=== PATIENT | female | born 1950 | race African-American/Black ===

== ENCOUNTER 2020-06-11 13:06 | Inpatient (IN) | payer MEDICARE, MEDICAID, OTHER ==
[2020-06-11 13:46] LABS: Hemoglobin 11.8 g/dL (12.0-16.0); Mean Corpuscular HGB CONC 32.2 g/dL (32.0-36.0); Mean Corpuscular Hemoglobin 28.2 pg (27.0-31.0); Mean Corpuscular Volume 87.5 fL (78.0-98.0); Mean Platelet Volume 11.3 fL (7.4-10.4); Platelet Count 147 thou/uL (130-400); RBC Distribution Width 18.1 % (11.5-14.5); Red Blood Cell (RBC) Count 4.17 mill/uL (4.20-5.40); White Blood Cell (WBC) Count 9.7 thou/uL (4.8-10.8)
[2020-06-11 14:01] LABS: Phosphorus 3.3 mg/dL (2.3-4.7)
[2020-06-11 14:04] LABS: Band 4 % (5-11); Eosinophils 6 % (0-10); Large Platelets SLIGHT; Lymphocytes 42 % (21-51); MDiff Complete? YES; Monocytes 5 % (0-10); Neutrophil 29 % (42-75); Platelet Morphology Comment Appears Adequate; Polychromasia SLIGHT = 2-3 cells (100X) (0-2/hpf); Reactive Lymphocytes 14 % (0-10); Target Cells SLIGHT = 2-5 cells (100X) (0-1/hpf)
[2020-06-11 14:05] LABS: ALT (SGPT) 526 U/L (8-55); AST (SGOT) 734 U/L (5-34); Albumin 3.6 g/dL (3.4-4.8); Alkaline Phosphatase 111 U/L (40-110); Anion Gap 22 mmol/L (10-20); BUN (Urea Nitrogen) 34 mg/dL (9.8-20.1); Bilirubin, Total 6.8 mg/dL (0.2-1.2); Calc. Creatinine Clearance 0 mL/min (70-130); Calcium 10.1 mg/dL (7.8-10.44); Carbon Dioxide 11 mmol/L (23-31); Chloride 109 mmol/L (98-107); Estimated GFR-MDRD 14; Globulin 5.9 g/dL (2.4-3.5); Glucose 91 mg/dL (80-115); Magnesium 1.9 mg/dL (1.6-2.6); Potassium 5.7 mmol/L (3.5-5.1); Protein, Total 9.5 g/dL (6.0-8.3); Sodium 136 mmol/L (136-145)
[2020-06-11] MEDS ORDERED: Sodium Bicarb 50 MEQ/50 ML Abboject 8.4% SYRINGE ONE (14:20)
[2020-06-11] MEDS ORDERED: Sodium Bicarbonate 150 MEQ in Dextrose 5% in Water 1,000 ML IV SCH (14:45)
--- NOTE | 2020-06-11 14:59 | PDOC.FPRHP ---
- History of Present Illness Chief Complaint: abnormal labs History of Present Illness: Patient is a 70 yo F, PMHx of Dementia, Depression, HTN, DMII, HLD and hypothyroid, who was dropped off at the emergency department by [facility] secondary to abnormal lab work. The patient states she was told that her kidney and liver function was not good. She states that she has not been eating for the past 2-3 days due to nausea and vomiting and has had some hematuria but denies constipation, or diarrhea, blood in stools, fever, cough, dysuria, urinary retention, urinary frequency, abdominal pain, blood in stools or vomit, swelling. Patient denies taking any extra medications, noting she has not taken any today. States that in addition to depression, she has Bipolar Disorder and Schizophrenia, denies SI/HI. Patient has been going to [facility] for many years. Patient is a questionable historian due to dementia. Called and spoke with sister who said over the past 2-3 weeks patient has not had an appetite and has had low energy "not wanting to do anything". She notes that her PCP recently called the patient and told her that she needed to stop a medication which she thinks was metformin, due to increased liver enzymes. ED Course: 2 L NS, 1 amp D5, 1 amp sodium bicarb, starting bicarb drip. Consult Dr. Danielle. - Allergies/Adverse Reactions Allergies Allergy/AdvReac Type Severity Reaction Status Date / Time No Known Allergies Allergy Unverified 06/11/20 14:36 - History PMHx: Depression, hypothyroid, DMII, HLD, questionable other mental health d/o possible other mental health disorder (taking antipsychotics), Dementia PSHx: hysterectomy FHx: no known family history Social: Patient smokes 1-2 cigarettes a day for 30+ years, no tobacco, no etoh use - Review of Systems General: reports: weight/appetite/sleep changes, fatigue. denies: fever/chills Eyes: denies: eye pain, vision changes ENT: denies: nasal congestion, rhinorrhea Respiratory: denies: cough, congestion, shortness of breath Cardiovascular: denies: chest pain, edema Gastrointestinal: reports: nausea, vomiting. denies: diarrhea, constipation, abdominal pain, GI bleeding Genitourinary: denies: incontinence, dysuria, polyuria Skin: denies: rashes, lesions Musculoskeletal: denies: pain, tenderness Neurological: denies: numbness, syncope, seizure Psychological: reports: depression - Vital signs BP: 98/47, MAP: 64, Pulse: 80, O2 sat: 100 on RA Wt: 79.4 Kg - Physical Exam Constitutional: NAD, well developed -Constitutional: AxO x 2 (person, place, but not date/time) HEENT: normocephalic and atraumatic, PERRLA, other (scleral icterus present) Neck: supple, FROM Heart: RRR, normal S1/S2 Lungs: CTAB, no respiratory distress Abdomen: soft, non-tender, bowel sounds present Musculoskeletal: normal structure, normal tone Neurological: no focal deficit, normal sensation Skin: no rash/lesions, other (jaundice) Heme/Lymphatic: no unusual bruising or bleeding, no purpura -Psychiatric: AxO x 2 (person, place but stated month was december) FMR H&P: Results - Labs Result Diagrams: 06/11/20 13:30 06/11/20 13:30 Lab results: WBC 9.7 thou/uL (4.8-10.8) 06/11/20 13:30 Hgb 11.8 g/dL (12.0-16.0) L 06/11/20 13:30 Hct 36.5 % (36.0-47.0) 06/11/20 13:30 MCV 87.5 fL (78.0-98.0) 06/11/20 13:30 Plt Count 147 thou/uL (130-400) 06/11/20 13:30 Band Neuts % (Manual) 4 % (5-11) L 06/11/20 13:30 Sodium 136 mmol/L (136-145) 06/11/20 13:30 Potassium 5.7 mmol/L (3.5-5.1) H 06/11/20 13:30 Chloride 109 mmol/L (98-107) H 06/11/20 13:30 Carbon Dioxide 11 mmol/L (23-31) L 06/11/20 13:30 BUN 34 mg/dL (9.8-20.1) H 06/11/20 13:30 Creatinine 3.97 mg/dL (0.6-1.1) H 06/11/20 13:30 Glucose 91 mg/dL (80-115) 06/11/20 13:30 Calcium 10.1 mg/dL (7.8-10.44) 06/11/20 13:30 Total Bilirubin 6.8 mg/dL (0.2-1.2) H 06/11/20 13:30 AST 734 U/L (5-34) H 06/11/20 13:30 ALT 526 U/L (8-55) H 06/11/20 13:30 Alkaline Phosphatase 111 U/L (40-110) H 06/11/20 13:30 Serum Total Protein 9.5 g/dL (6.0-8.3) H 06/11/20 13:30 Albumin 3.6 g/dL (3.4-4.8) 06/11/20 13:30 - EKG Interpretation EKG: pending FMR H&P: A/P - Plan Acute Liver Failure/Hepatitis AST 734, ALT 526, Total Bili 6.8, Alk phos 111 Possible 2/2 medication, reportedly recently taken off medication that caused abnormal liver numbers Denies ETOH abuse, IV drug use, not sexually active, no hx transfusions Will contact PCP, request records - Hepatitis panel - Syphilis/RPR - Tylenol level, ASA level - UDS - PTT/PTINR - Lipase - Lactic acid - Abdominal U/S - repeat BMP - If workup negative, consider other etiology: autoimmune, hemochromatosis/ Luis's ELVIA BUN 34, Cr 3.97, GFR 14 - abdominal U/S - q2hr BMP's - Nephro consulted Dr. Danielle - recommended bicarb drip, appreciate recs - monitor I/Os Hyperkalemia K 5.7 - Calcium gluconate given - EKG ordered - q2h BMP's - initiate K reversal agents if needed and consider dialysis if significantly worsens DM II - hold home meds - SSI started Hypothyroid - will restart home meds tomorrow HLD - hold home med HTN - hold home meds Dementia - hold home meds Depression - hold home meds VTE: heparin Fluids: bicarb drip Diet: HH Code: full Dispo: admit to IMCU for close monitoring FMR H&P: Upper Level - Pertinent history Pt is a 70 yo female with PMH significant for hypothyroid, htn, dementia, DM, HLD, depression who presents to the ED directly from [facility] due to elevated liver enzymes. She is a poor historian. She endorsed N/V for the last 2 weeks with decreased appetite. Otherwise she denies any complaints. She states she was supposed to stop taking a medication due to lab abnormalities but does not know the medication. She does have decrease urine output. Denies previous history of kidney disease. We spoke to her daughter endorsed dementia, baseline AAO x [address] States mother has not been acting herself for the last 2 weeks. Mariangel and her daughter live together. - Pertinent findings Vitals: 98/47, r 24, p 80, 97.5 F, 100% RA Pertinent PE: Abdomen: non-tender, no masses noted, negative [place], did not appreciated enlarged liver Skin: jaundice HEENT: scleral icterus Pulm: CTAB Cardiac: RRR, no m/r/g - Plan Date/Time: 06/11/20 1456 I, Oh Blanchard, have evaluated this patient and agree with findings/plan as outlined by process engineering intern resident. Pertinent changes/additions are listed here. Pt is a 70 yo female who presents with acute liver failure, acute kidney failure with unknown etiology: # Acute Liver Failure/Hepatitis Possibly secondary to medication but unsure etiology at this time. She states she was recently taken off a medication for abnormal liver numbers. Denies alcohol. - Hepatitis panel - Tylenol level - ASA level - PTT/PTINR - Lipase - Lactic acid - UDS - RUQ U/S - repeat BMP after 2 L of fluids - consider autoimmune, Luis's if work up is negative # Acute Kidney Failure - abdominal U/S - q2h BMP's - Nephro consulted, appreciate rec's - given bicarb drip # Hyperkalemia - Calcium gluconate given - q2h BMP's - initiate K reversal agents if needed and consider dialysis if significantly worsens # DM II - hold home meds - SSI started # Hypothyroid - restart tomorrow # HLD - hold home med # HTN - hold home meds # Dementia - hold home meds # Depression - hold home meds VTE: heparin Fluids: bicarb drip Diet: :HH Code: full Dispo: admit to IMCU for close monitoring
--- NOTE | 2020-06-11 15:13 | CON ---
DATE OF CONSULTATION: REASON FOR CONSULTATION: Hyperkalemia and acute renal failure. HISTORY OF PRESENT ILLNESS: This is a very pleasant 70-year-old female, who presented to the hospital for abnormal labs. The patient was noted to have hyperkalemia and significant metabolic acidosis. The patient can give no further history. PAST MEDICAL HISTORY: Significant for diabetes mellitus, hyperlipidemia, hypertension, and hysterectomy. SOCIOECONOMIC HISTORY: No alcohol or drug abuse. FAMILY HISTORY: Negative for ESRD. ALLERGIES: REVIEWED. MEDICATIONS: Home medications list reviewed. Hospital medications list reviewed. REVIEW OF SYSTEMS: Fifteen-point review of system was performed and negative except for positives noted above. PHYSICAL EXAMINATION: GENERAL: On exam, the patient is awake and alert. VITAL SIGNS: Afebrile, breathing at 16, and blood pressure 83/46, and pulse was 110. HEENT: Head normocephalic and atraumatic. Eyes intact, no ulcers. Nose intact, no ulcers. Ears intact, no ulcers. NECK: Supple. No JVD. CHEST: Symmetrical and clear. CARDIOVASCULAR: Shows S1 and S2, no rub, no murmur. GASTROINTESTINAL: Abdomen is soft, bowel sounds positive. EXTREMITIES: Show no edema or ulcers. SKIN: Shows no rash or petechiae. MUSCULOSKELETAL: Shows no joint swelling or stiffness. GENITOURINARY: Shows no Valdez or CVA tenderness. NEUROLOGIC: Motor intact. Cranial nerves intact. LABORATORY DATA: Reviewed. ASSESSMENT AND PLAN: 1. Acute kidney injury with chronic kidney disease, most likely due to decreased effective arterial blood volume. liver failure. 2. Hyperkalemia. Start bicarb drip. 3. Anemia, stable. Medications based on GFR are appropriate. Liver failure could be because of hypertension versus sepsis versus other etiologies. I would recommend getting a 2D echo as well as renal imaging. Overall, prognosis is poor. I would recommend following labs every 2 hours. Job ID: [id number]
[2020-06-11 15:40] LABS: Actual Bicarbonate (HCO3a) 13.7 mEq/L (22-28); Analyzer IN Cardio ER; Base Excess (BEa) -10.7 mEq/L (-2.0 to +3.0); CO2 Tension 26.1 mmHg (35.0-45.0); Calcium, Ionized (arterial) 0.98 mmol/L (1.12-1.30); Carboxyhemoglobin (COHb) 0.3 gm% (0.0-3.0); Hemoglobin (Hb) 10.6 g/dL (12.0-16.0); Potassium - ABG Lab 4.22 mmol/L (3.70-5.30); pH, Arterial 7.34 (7.35-7.45)
[2020-06-11 15:42] LABS: ALV-art Gradient 19.105 (0-20); Puncture Site RBRACH
[2020-06-11] MEDS ORDERED: Ondansetron ODT 4 MG TAB PO PRN (15:48)
[2020-06-11] MEDS ORDERED: Dextrose 50% Abboject 50 ML SYRINGE SLOW IVP PRN (15:48)
[2020-06-11] MEDS ORDERED: Dextrose 5% in Water 1,000 ML IV PRN (15:48)
[2020-06-11] MEDS ORDERED: HumaLOG 300 UNITS/3 ML VIAL SC PRN ×2 (15:54)
[2020-06-11] MEDS ORDERED: Calcium Gluconate 4.6 MEQ in Sodium Chloride 0.9% 100 ML IVPB SCH (16:15)
[2020-06-11 16:24] LABS: Acetaminophen Less than 6.0 mcg/mL (10.0-30.0); Alcohol Less than 10 mg/dL (Less than 10); Salicylate Less than 8.0 mg/dL (15.0-30.0)
--- NOTE | 2020-06-11 17:14 | ULT ---
ULTRASOUND RETROPERITONEUM COMPLETE: (RENAL) DATE: 06/11/2020 HISTORY: 70-year-old female with new onset renal failure FINDINGS: Bilateral renal parenchymal echogenicity is diffusely heterogeneously slightly increased, suggestive of medical renal disease. The left kidney is poorly visualized, partially obscured by shadowing from bowel gas. No hydronephrosis bilaterally. Right kidney: 10 x 4 x 5.5 cm. Left kidney: 7.5 x 4.5 x 4 cm. There are no images of the urinary bladder. IMPRESSION: 1) no hydronephrosis. 2.) Findings suggestive of medical renal disease. 3) left kidney poorly visualized
[2020-06-11 19:41] VITALS: BMI 37.5
[2020-06-11 20:10] LABS: Syphilis Antibody Nonreactive (Nonreactive); Syphilis Antibody Index 0.08 S/CO (<1.00 Non-Reactive)
[2020-06-11] MEDS ORDERED: Vancomycin HCl 1.25 GM in Sodium Chloride 0.9% 250 ML 300 ML IVPB SCH (21:15)
[2020-06-11] MEDS: Heparin 5,000 UNITS/ML VIAL SC SCH (21:16)
[2020-06-11 21:35] LABS: Anion Gap 16 mmol/L (10-20); BUN (Urea Nitrogen) 31 mg/dL (9.8-20.1); Calc. Creatinine Clearance 21 mL/min (70-130); Calcium 8.4 mg/dL (7.8-10.44); Carbon Dioxide 19 mmol/L (23-31); Chloride 106 mmol/L (98-107); Estimated GFR-MDRD 16; Glucose 157 mg/dL (80-115); Potassium 3.9 mmol/L (3.5-5.1); Sodium 137 mmol/L (136-145)
[2020-06-11 21:39] LABS: Lactic Acid 3.3 mmol/L (0.5-2.2)
[2020-06-11 21:48] LABS: Anion Gap 15 mmol/L (10-20); BUN (Urea Nitrogen) 30 mg/dL (9.8-20.1); Calc. Creatinine Clearance 21 mL/min (70-130); Calcium 8.8 mg/dL (7.8-10.44); Carbon Dioxide 19 mmol/L (23-31); Chloride 107 mmol/L (98-107); Estimated GFR-MDRD 16; Glucose 160 mg/dL (80-115); Potassium 3.9 mmol/L (3.5-5.1); Sodium 137 mmol/L (136-145)
[2020-06-11] MEDS: Sodium Chloride 0.9% 1,000 ML IV SCH (22:13)
[2020-06-11 22:47] LABS: HIV (1/2) Antibody/Antigen Non-Reactive (NonReactive); HIV 1/2 INDEX 0.11 S/CO (<1.00); Hep C IgG Ab Non-Reactive (NonReactive); Hep C Index 0.28 S/CO (0-0.79)
[2020-06-12 00:20] LABS: HBSAB Concentration 35.02 mIU/mL; Hep B Core Total Ab Reactive (NonReactive); Hep B Surf AB Reactive (NonReactive)
[2020-06-12 00:27] LABS: Hep B Core Total Index 13.81 S/CO (0-0.79)
[2020-06-12 00:29] LABS: HBSAg Index 1341.45 S/CO (0-0.99)
[2020-06-12 00:45] LABS: Hep B Surf Ag Reflx Confirmation S/CO (NonReactive)
[2020-06-12 01:26] LABS: INR-International Normal Ratio 1.4; Prothrombin Time 17.4 sec (12.0-14.7)
[2020-06-12 01:28] LABS: PTT 45.4 sec (22.9-36.1)
[2020-06-12 01:32] LABS: Creatinine, Urine 50.06 mg/dL (47-110)
[2020-06-12 01:45] LABS: Amphetamine Not Detected (NotDetected); Barbiturates Screen Not Detected (NotDetected); Benzodiazepine Screen Not Detected (NotDetected); Cocaine Metabolite Screen Not Detected (NotDetected); Medtox Control Line Valid? VALID (VALID); Medtox Reader # READER 4; Methadone Not Detected (NotDetected); Methamphetamine Not Detected (NotDetected); Opiate Screen Not Detected (NotDetected); Oxycodone Screen Not Detected (NotDetected); Phencyclidine (PCP) Not Detected (NotDetected); THC/Cannabinoid Screen Not Detected (NotDetected); Tricyclic Screen Not Detected (NotDetected)
[2020-06-12 02:16] LABS: ALT (SGPT) 415 U/L (8-55); AST (SGOT) 550 U/L (5-34); Albumin 3.1 g/dL (3.4-4.8); Alkaline Phosphatase 96 U/L (40-110); Anion Gap 16 mmol/L (10-20); BUN (Urea Nitrogen) 28 mg/dL (9.8-20.1); Bilirubin, Total 5.7 mg/dL (0.2-1.2); Calc. Creatinine Clearance 22 mL/min (70-130); Calcium 9.1 mg/dL (7.8-10.44); Carbon Dioxide 18 mmol/L (23-31); Chloride 108 mmol/L (98-107); Estimated GFR-MDRD 17; Globulin 4.7 g/dL (2.4-3.5); Glucose 112 mg/dL (80-115); Potassium 3.3 mmol/L (3.5-5.1); Protein, Total 7.8 g/dL (6.0-8.3); Sodium 139 mmol/L (136-145)
[2020-06-12] MEDS ORDERED: Potassium Chloride 20 MEQ TAB PO SCH (03:00)
[2020-06-12 04:29] LABS: Lactic Acid 2.5 mmol/L (0.5-2.2)
[2020-06-12 05:12] LABS: #Basophils 0.1 thou/uL (0.0-0.2); #Eosinphils 0.3 thou/uL (0.0-0.7); #Lymphocytes 2.9 thou/uL (1.20-3.40); #Monocytes 0.9 thou/uL (0.11-0.59); #Neutrophils 2.3 thou/uL (1.40-6.50); %Basophils 0.8 % (0.0-1.0); %Eosinophils 4.9 % (0.0-10.0); %Lymphocytes 44.8 % (21.0-51.0); %Monocytes 13.7 % (0.0-10.0); %Neutrophils 35.8 % (42.0-75.0); Anisocytosis SLIGHT = 6-15 cells (100X) (0-5/hpf); Hemoglobin 10.2 g/dL (12.0-16.0); MDiff Complete? YES; Mean Corpuscular HGB CONC 32.7 g/dL (32.0-36.0); Mean Corpuscular Hemoglobin 28.8 pg (27.0-31.0); Mean Corpuscular Volume 88.1 fL (78.0-98.0); Mean Platelet Volume 11.1 fL (7.4-10.4); Platelet Count 91 thou/uL (130-400); Platelet Morphology Comment Appears Decreased; RBC Distribution Width 17.9 % (11.5-14.5); Red Blood Cell (RBC) Count 3.53 mill/uL (4.20-5.40); White Blood Cell (WBC) Count 6.5 thou/uL (4.8-10.8)
--- NOTE | 2020-06-12 07:16 | PDOC.FM ---
- Subjective Subjective: Pt is doing well today. She again denies any significant pain, discomfort, N/V, diarrhea. She has an appetite today and ate most of her breakfast. We discussed hepatitis B and she believes she has heard the diagnosis 10-15 years ago but is unsure of any the details. She does not believe she has had any treatment or workup since the initial diagnosis. Still pending records from [facility]. - Objective Vital Signs & Weight: Vital Signs (12 hours) Temp Pulse Ox 06/12/20 04:00 97.6 F 06/11/20 23:40 97.6 F 06/11/20 20:00 98.0 F 97 Weight Weight 87.09 kg Most Recent Monitor Data Heart Rate from ECG 71 NIBP 110/56 NIBP BP-Mean 74 Respiration from ECG 22 SpO2 96 I&O: 06/11/20 06/12/20 06/13/20 06:59 06:59 06:59 Intake Total 1620 Output Total 800 Balance 820 Result Diagrams: 06/12/20 03:24 06/12/20 01:08 Phys Exam - Physical Examination Constitutional: NAD HEENT: PERRLA, moist MMs scleral icterus Neck: no JVD, full ROM Respiratory: no wheezing, clear to auscultation bilateral Cardiovascular: RRR, no significant murmur Gastrointestinal: soft, non-tender, no distention, positive bowel sounds Musculoskeletal: no edema, pulses present Neurological: non-focal, normal sensation Deviation from normal: AAO x 2 to person, place; can hold a conversation, short term memory intact Skin: no rash, cap refill <2 seconds Dx/Plan (1) Hepatitis Status: Acute (2) Acute renal failure Status: Acute (3) Chronic kidney disease Code(s): N18.9 - CHRONIC KIDNEY DISEASE, UNSPECIFIED Status: Acute (4) Diabetes Code(s): E11.9 - TYPE 2 DIABETES MELLITUS WITHOUT COMPLICATIONS Status: Acute (5) HTN (hypertension) Code(s): I10 - ESSENTIAL (PRIMARY) HYPERTENSION Status: Acute (6) Hypothyroid Code(s): E03.9 - HYPOTHYROIDISM, UNSPECIFIED Status: Acute - Plan Plan: # Acute Liver Failure/Hepatitis Unsure if Hep B panel is indicating acute disease vs chronic disease vs prior infection. Recalls being told she had hep B many years ago. Possibly secondary to medication but unsure etiology at this time. She states she was recently taken off a medication for abnormal liver numbers. Denies alcohol. - PTT/PTINR daily - consult GI, appreciate recs - release of records pending # Acute Kidney Failure on likely CKD - Nephro consulted, appreciate rec's - given bicarb drip # Hyperkalemia - improved # Elevated Procal - 24 hr procal and consider d/c of abx - CXR # DM II - hold home meds - SSI started # Hypothyroid - restart tomorrow # HLD - hold home med # HTN - hold home meds # Dementia - hold home meds # Depression - hold home meds # Thrombocytopenia - monitor in setting of heparin VTE prophylaxis VTE: heparin Fluids: NS Diet: HH Code: full Dispo: admit to IMCU for close monitoring Addendum - Attending - Attending Attestation Date/Time: 06/12/20 7015 I personally evaluated the patient and discussed the management with Dr. Blanchard. I agree with the History, Examination, Assessment and Plan documented above with any addition or exceptions noted below. The patient has hepatitis B, possibly for a long time but she doesn't know if she has seen anybody for it. Will consult GI. Nephrology is consulted for the renal failure. Will monitor labs. Appreciate specialist recs.
[2020-06-12 08:04] LABS: INR-International Normal Ratio 1.5; PTT 44.9 sec (22.9-36.1); Prothrombin Time 17.7 sec (12.0-14.7)
[2020-06-12] MEDS: Famotidine 20 MG TAB PO SCH (08:52)
[2020-06-12] MEDS: Heparin 5,000 UNITS/ML VIAL SC SCH ×3 (09:39→21:21)
--- NOTE | 2020-06-12 11:06 | RAD ---
RADIOGRAPH CHEST 1 VIEW: DATE: 06/12/2020 HISTORY: 70-year-old female with at least 2 organ failure. "Infection." FINDINGS: There are no airspace densities, pulmonary edema, pneumothorax, or cardiomegaly. The lateral costophr enic angles are sharp. IMPRESSION: No acute cardiopulmonary findings.
--- NOTE | 2020-06-12 12:27 | PRG ---
DATE OF SERVICE: 06/12/2020 SUBJECTIVE: A 70-year-old female, being seen for acute kidney injury. Patient denied nausea, vomiting or chest pain. OBJECTIVE: GENERAL: The patient is awake, alert. VITAL SIGNS: Afebrile, pulse 85, breathing 16, blood pressure 109/67. HEENT: Head normocephalic and atraumatic. Eyes intact, no ulcers. Nose intact, no ulcers. Ears intact, no ulcers. NECK: Supple. No JVD. CHEST: Symmetrical and clear. CARDIOVASCULAR: Shows S1 and S2, no rub, no murmur. GASTROINTESTINAL: Abdomen is soft, bowel sounds positive. EXTREMITIES: Show no edema or ulcers. SKIN: Shows no rash or petechiae. MUSCULOSKELETAL: Shows no joint swelling or stiffness. GENITOURINARY: Shows no Valdez or CVA tenderness. NEUROLOGIC: Motor intact. Cranial nerves intact. LABORATORY DATA: Reviewed. ASSESSMENT: 1. Acute kidney injury with chronic kidney disease, improved. 2. Hypertension, stable. 3. Anemia, stable. 4. Hypokalemia. Recommend potassium replacement. 5. Metabolic acidosis, improved. Continue sodium bicarbonate by mouth. 6. Hypotension. Avoid antihypertensive. 7. For acidosis, would recommend GI consultation. Job ID: [id number]
[2020-06-12 13:03] LABS: Bacteria/HPF None Seen HPF (None Seen); Bilirubin Negative (Negative); Blood, Urine 2+ (Negative); Clarity Clear (Clear); Glucose, Urine (Dipstick) Normal (Negative); Ketone, Urine Negative (Negative); Leukocyte 500 Leu/uL (Negative); Nitrite Negative (Negative); Protein, Urine (Dipstick) 50 mg/dL (Neg-Trace); RBC/HPF 0-3 HPF (0-3)
[2020-06-12 13:52] LABS: SARS-CoV-2 MS2 Positive; SARS-CoV-2 N Gene Negative; SARS-CoV-2 S Gene Negative; SARS-CoV-2 by NAA Not Detected (NotDetected); SARS-CoV-2 orf1ab Negative
[2020-06-12] MEDS: Sodium Chloride 0.9% 1,000 ML IV SCH ×2 (13:57→23:04)
--- NOTE | 2020-06-12 14:06 | PQF ---
CLINICAL DOCUMENTATION CLARIFICATION FORM: Dear Dr. SHAJI GARRETT Date: 06-12-20 Please exercise your independent, professional judgment in responding to the clarification form. Clinical indicators are provided on the bottom of this form for your review. Please check appropriate box(es): [ x ] UTI [ ] Contaminated urine specimen without UTI [ ] Other diagnosis [ ] Unable to determine In addition, please specify: Present on Admission (POA): [ x ] Yes [ ] No [ ] Unable to determine For continuity of documentation, please document condition throughout progress notes and discharge summary. Thank You. To be completed by CDI/Coding staff for physician review: CLINICAL INDICATORS - SIGNS / SYMPTOMS / LABS / RESULTS AND LOCATION IN MR: URINE: 06-12-20: URINE PROTEIN: 50 A UR LEUKOCYTE ESTERASE: 500 A URINE WBC: 11-20 RISK FACTORS / RESULTS AND LOCATION IN MR: H&P: 06-11-20: TOLD KIDNEY AND LIVER FUNCTION WAS NOT GOOD, STATES THAT SHE HAS NOT BEEN EATING FOR THE PAST 2-3 DAYS DUE TO NAUSEA AND VOMITING, SHE DOES HAVE DECREASE URINE OUTPUT TREATMENT / RESULTS AND LOCATION IN MR: ER NOTES 06-11-20: DEXTROSE 5% IN WATER IVF, NS IVF X 2 L CDS Signature: Aaliyah Laughlin Phone #: [phone] Date:06-12-20 This is a permanent part of the Medical Record [facility]
--- NOTE | 2020-06-12 14:08 | HP ---
HISTORY OF PRESENT ILLNESS: I have examined the patient and discussed the case with Dr. Oh Blanchard. Ms. Sood is a pleasant 70-year-old black female patient, who presented to the emergency room hypotensive with a metabolic acidosis. She is a very poor historian. She does not know what medicines she has taken that had been altered or changed in the last week or two. She had been seeing a physician at [facility]. We have placed a call to this physician for further history, but there has been no return call as of yet. In the event, she is awake, alert. She appears to be in no acute distress. Her only complaint is that she is hungry and wants supper. PHYSICAL EXAMINATION: GENERAL: Again, she is awake, alert. VITAL SIGNS: Her initial blood pressure is 90/60, it is now 98/50 with a MAP of 64. Pulse is 80, regular. O2 saturation on room air is 100%. EAR, NOSE, AND THROAT: No erythema or exudate. NECK: Supple. CARDIAC: Heart rhythm regular, S4 gallop. No murmur or rub noted. LUNGS: Clear without rales or wheezes. ABDOMEN: Flat, soft. No guarding, rebound, or rigidity. NEUROLOGIC: No focal deficits. EXTREMITIES: No edema. LABORATORY DATA: White count is 9700, hemoglobin 11.8, hematocrit 36.5 with an MCV of 87.5. Chemistries; sodium 136, potassium 5.7, chloride 109, bicarb 11, anion gap 22, BUN 34, creatinine 3.97, glucose is 91. Her bilirubin is elevated at 6.8. Her AST is 734, ALT is 526. ABGs, on room air, pH is 7.34, pCO2 is 26.1, and PO2 is 98.0. These are consistent with metabolic acidosis with respiratory compensation. ASSESSMENT: Metabolic acidosis, likely related to renal failure, which is likely related to her low blood pressure. She had been taking an ARB as part of her medical regimen. It is possible that this caused acute kidney injury, which she was unaware and therefore kept taking her medication. This accumulated in probably toxic levels causing her hypotension and subsequent poor perfusion and subsequent metabolic acidosis. The patient has also been seen by Dr. Danielle and a bicarb infusion has been instituted. We will hold her BP medications and continue to follow her labs. WORKING DIAGNOSIS: ARB toxicity with subsequent renal failure, shock liver, hypotension, etc. Job ID: [id number]
[2020-06-12] MEDS ORDERED: Vancomycin HCl 500 MG in Sodium Chloride 0.9% 100 ML IVPB SCH (21:00)
[2020-06-12] MEDS: cefTRIAXone\\ROCEPHIN 1 GM in Sodium Chloride 0.9% 100 ML IVPB SCH (21:18)
[2020-06-12] MEDS ORDERED: OLANZapine 5 MG TAB PO SCH (21:30)
[2020-06-12] MEDS ORDERED: Cefepime 1 GM in Sodium Chloride 0.9% 100 ML IVPB SCH (22:00)
[2020-06-12] MEDS: Nicotine 14 MG PATCH TD SCH (23:00)
--- NOTE | 2020-06-13 02:10 | CON ---
DATE OF CONSULTATION: 06/12/2020 CHIEF COMPLAINT: Abnormal liver tests. HISTORY OF PRESENT ILLNESS: Ms. Sood is a 70-year-old woman who was taken to the emergency room by [facility] due to abnormal blood work. In the emergency room, she was found to have acute renal failure on top of chronic renal insufficiency and elevated liver tests. The patient reports no symptoms currently. She has no nausea, vomiting, diarrhea, constipation, or blood in the stool. No abdominal pain. No prior jaundice or history of liver disease. She has been followed previously at [facility]. She states that she had a colonoscopy at [facility] several years ago. GI was consulted for further assistance regarding her liver. PAST MEDICAL HISTORY: Chronic renal insufficiency, diabetes mellitus, hyperlipidemia, hypertension. PAST SURGICAL HISTORY: Hysterectomy with oophorectomy. FAMILY HISTORY: Negative for liver disease or cancer. SOCIAL HISTORY: She smokes 2 or 3 cigarettes per day. No alcohol. No drugs. ALLERGIES: NO KNOWN DRUG ALLERGIES. MEDICATIONS: Prior to admission, losartan with hydrochlorothiazide, levothyroxine, rosuvastatin, memantine, olanzapine, metformin. Current inpatient medications include ceftriaxone, famotidine, heparin subcu, levothyroxine, memantine, and olanzapine. REVIEW OF SYSTEMS: Negative x10 systems reviewed except as stated in the history of present illness. PHYSICAL EXAMINATION: VITAL SIGNS: Temperature 97.5, pulse 77, blood pressure 105/69. GENERAL: She is in no acute distress. Alert and oriented x3. HEENT: Eyes have no scleral icterus. Oropharynx is clear without lesions. No cervical or supraclavicular lymphadenopathy. LUNGS: Clear to auscultation bilaterally. HEART: Regular rate and rhythm without murmur. ABDOMEN: Soft, nontender, and nondistended. Bowel sounds are present. EXTREMITIES: No lower extremity edema. LABORATORY DATA: White blood cell count 6.5, hemoglobin 10.2, platelets 91. INR 1.5. Creatinine 3.29, bilirubin 5.7, AST 550, ALT 415, alkaline phosphatase 96, albumin 3.1. Labs yesterday; bilirubin was 6.8, AST 734, ALT 526, alkaline phosphatase 111, albumin 3.6. Serology; hepatitis B surface antigen was positive. Hepatitis B surface antibody was positive. Hepatitis B core total was positive. Hepatitis C antibody was negative. IMAGING DATA: She had an ultrasound of the abdomen which showed a nodular margin to the liver. IMPRESSION: 1. Cirrhosis of the liver. Etiology of this is not yet defined. We will check additional blood work to further evaluate. 2. Abnormal liver tests. The elevated transaminases indicate a more acute process. With AST greater than ALT, this can often be seen with ischemic hepatopathy. Her hepatitis B surface antigen and surface antibody are both positive, which would be an unusual combination. We will need to check a DNA level to evaluate for ongoing viral replication. The other reason for this pattern could be if she actually had a more recent acute hepatitis B infection that is resolving with her own immune response. Given the chronic cirrhotic findings, it seems less likely that she really presented just now with an acute hepatitis B. 3. Acute on chronic renal insufficiency. Again hemodynamically mediated cause of this is considered on her antihypertensives. Medication side effect is possible. RECOMMENDATIONS: 1. Additional labs to evaluate cause of her liver disease, including repeat viral hepatitis acute panel as well as hepatitis B surface antibody and hepatitis A total antibody. Also check autoimmune markers and iron saturation and alpha 1 antitrypsin level. 2. Check alpha fetoprotein for hepatoma screening. Ultrasound showed no liver mass. 3. Her statin has been held. 4. She will eventually require upper endoscopy for varices screening. This can be done as an outpatient. 5. Follow trend of her liver tests and check her INR and follow her mental status. She shows no signs of hepatic encephalopathy. She has no asterixis on exam. She does not have slowing of her mentation. Job ID: [id number]
[2020-06-13 04:21] LABS: #Eosinphils 0.3 thou/uL (0.0-0.7); #Lymphocytes 2.3 thou/uL (1.20-3.40); #Monocytes 0.6 thou/uL (0.11-0.59); #Neutrophils 2.2 thou/uL (1.40-6.50); %Basophils 0.4 % (0.0-1.0); %Eosinophils 5.6 % (0.0-10.0); %Lymphocytes 41.8 % (21.0-51.0); %Monocytes 11.1 % (0.0-10.0); %Neutrophils 41.1 % (42.0-75.0); Hemoglobin 10.1 g/dL (12.0-16.0); Mean Corpuscular Hemoglobin 28.8 pg (27.0-31.0); Mean Corpuscular Volume 87.2 fL (78.0-98.0); Mean Platelet Volume 11.1 fL (7.4-10.4); Platelet Count 92 thou/uL (130-400); RBC Distribution Width 18.2 % (11.5-14.5); Red Blood Cell (RBC) Count 3.52 mill/uL (4.20-5.40); White Blood Cell (WBC) Count 5.4 thou/uL (4.8-10.8)
[2020-06-13 04:22] LABS: INR-International Normal Ratio 1.4; PTT 32.8 sec (22.9-36.1)
[2020-06-13 04:53] LABS: Albumin 3.1 g/dL (3.4-4.8)
[2020-06-13 04:54] LABS: Chloride 108 mmol/L (98-107); Potassium 3.5 mmol/L (3.5-5.1); Sodium 137 mmol/L (136-145)
[2020-06-13 04:56] LABS: Globulin 4.8 g/dL (2.4-3.5); Glucose 123 mg/dL (80-115); Protein, Total 7.9 g/dL (6.0-8.3)
[2020-06-13 04:57] LABS: Anion Gap 19 mmol/L (10-20); Bilirubin, Total 5.8 mg/dL (0.2-1.2); Carbon Dioxide 14 mmol/L (23-31)
[2020-06-13 04:59] LABS: Alkaline Phosphatase 103 U/L (40-110); Calc. Creatinine Clearance 27 mL/min (70-130); Estimated GFR-MDRD 21
[2020-06-13 05:00] LABS: BUN (Urea Nitrogen) 18 mg/dL (9.8-20.1)
[2020-06-13 05:01] LABS: ALT (SGPT) 366 U/L (8-55); AST (SGOT) 459 U/L (5-34); Iron Binding Capacity, Total 318 mcg/dL (265-497)
[2020-06-13 05:02] LABS: Iron 217 ug/dL (50-170)
[2020-06-13 05:17] LABS: Hep C IgG Ab Non-Reactive (NonReactive)
[2020-06-13 05:18] LABS: Hep A IgM AB Non-Reactive (NonReactive); Hep C Index 0.21 S/CO (0-0.79)
[2020-06-13 05:19] LABS: Hep A IgM S/CO 0.38 S/CO (0-0.79)
--- NOTE | 2020-06-13 05:20 | PDOC.FM ---
- Subjective Subjective: Pt is feeling well this AM. Denies problems or complaints. Overnight became combative because RN took her cigarettes. Was given nicotine patch. Placed on soft restraints. - Objective MAR Reviewed: Yes Vital Signs & Weight: Vital Signs (12 hours) Temp Pulse Ox 06/13/20 04:17 96.2 F L 06/13/20 00:29 98.6 F 06/12/20 20:00 96 06/12/20 19:13 97.5 F L Weight Admit Weight 87.09 kg Weight 87.09 kg Most Recent Monitor Data Heart Rate from ECG 74 NIBP 127/82 NIBP BP-Mean 97 Respiration from ECG 16 SpO2 96 I&O: 06/11/20 06/12/20 06/13/20 06:59 06:59 06:59 Intake Total 1620 Output Total 800 300 Balance 820 -300 Result Diagrams: 06/13/20 03:43 06/13/20 03:43 Phys Exam - Physical Examination Constitutional: NAD Respiratory: no wheezing, clear to auscultation bilateral Cardiovascular: RRR, no significant murmur Gastrointestinal: soft, non-tender, no distention, positive bowel sounds Musculoskeletal: no edema Neurological: non-focal Psychiatric: normal affect Dx/Plan (1) Acute renal failure Status: Acute (2) Chronic kidney disease Code(s): N18.9 - CHRONIC KIDNEY DISEASE, UNSPECIFIED Status: Acute (3) Diabetes Code(s): E11.9 - TYPE 2 DIABETES MELLITUS WITHOUT COMPLICATIONS Status: Acute (4) HTN (hypertension) Code(s): I10 - ESSENTIAL (PRIMARY) HYPERTENSION Status: Acute (5) Hepatitis Status: Acute (6) Hypothyroid Code(s): E03.9 - HYPOTHYROIDISM, UNSPECIFIED Status: Acute - Plan Plan: # Acute Liver Failure/Hepatitis She states she was recently taken off a medication for abnormal liver numbers. Denies alcohol. - PTT/PT/INR daily - consult GI, appreciate recs. Labs pending. 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 # Acute Kidney Failure on likely CKD - Nephro consulted, appreciate rec's - continue bicarb by mouth # Hyperkalemia - improved, monitor # Elevated Procal - procal 1.01-> 0.57, s/p 1 g ceftriaxone. Consider 3 day course of abx given indeterminate procal to cover for SBP/UTI. - CXR neg # Thrombocytopenia - monitor in setting of heparin VTE prophylaxis # DM II - A1c 5.4, hold/discontinue metformin. - SSI started # Hypothyroid # Dementia # Depression - continue home meds - continue 1-on-1 sitter and soft restraints prn # HLD # HTN - hold statin - hold home BP med, BPs here have been WNL or borderline low VTE: heparin Fluids: NS Diet: HH Code: full Dispo: currently in IM, will place transfer order today for medical floor. Addendum - Attending - Attending Attestation Date/Time: 06/13/20 5524 I personally evaluated the patient and discussed the management with Dr. Foley. I agree with the History, Examination, Assessment and Plan documented above with any addition or exceptions noted below. The patient was agitated overnight. Sitter is at the bedside. Pt is pleasant this morning. Stable to transfer to medical. Liver enzymes downtrending. Appreciate GI recs regarding liver disease and hepatitis B. Labs are currently pending. ELVIA is improving. Appreciate nephro recs. Continue to trend labs.
[2020-06-13] MEDS: Levothyroxine Sodium 50 MCG TAB PO SCH (05:39)
[2020-06-13 06:00] LABS: HBCM Index 1.73 S/CO (0-0.79); Hepatitis B Core IgM Abs Reactive (NonReactive)
[2020-06-13 07:44] LABS: Hep B Surf Ag Reflx Confirmation S/CO (NonReactive)
[2020-06-13 08:27] LABS: Ferritin 589.29 ng/mL (10-291)
[2020-06-13] MEDS: Heparin 5,000 UNITS/ML VIAL SC SCH ×3 (09:50→21:02)
[2020-06-13] MEDS: Famotidine 20 MG TAB PO SCH (09:50)
[2020-06-13 11:27] LABS: HBSAg Index 1361.85 S/CO (0-0.99)
--- NOTE | 2020-06-13 13:28 | PRG ---
DATE OF SERVICE: 06/13/2020 SUBJECTIVE: A 70-year-old female being seen for acute kidney injury. The patient denies nausea, vomiting, or chest pain. OBJECTIVE: GENERAL: On exam, the patient is awake and alert. VITAL SIGNS: Afebrile, pulse 75, breathing at 16, and blood pressure 131/72. HEENT: Head normocephalic and atraumatic. Eyes intact, no ulcers. Nose intact, no ulcers. Ears intact, no ulcers. NECK: Supple. No JVD. CHEST: Symmetrical and clear. CARDIOVASCULAR: Shows S1 and S2, no rub, no murmur. GASTROINTESTINAL: Abdomen is soft, bowel sounds positive. EXTREMITIES: Show no edema or ulcers. SKIN: Shows no rash or petechiae. MUSCULOSKELETAL: Shows no joint swelling or stiffness. GENITOURINARY: Shows no Valdez or CVA tenderness. NEUROLOGIC: Motor intact. Cranial nerves intact. LABORATORY DATA: Hemoglobin 10.1. Potassium is 3.4. ASSESSMENT AND PLAN: 1. Acute kidney injury, improved. 2. Stage 4 chronic kidney disease, stable. 3. Hyperkalemia, stable. 4. Metabolic acidosis. Start sodium bicarbonate 650 t.i.d. No indication for dialysis today. 5. Liver failure management per Primary Team. Job ID: [id number]
--- NOTE | 2020-06-13 13:40 | PRG ---
DATE OF SERVICE: 06/13/2020 SUBJECTIVE: Ms. Sood has no complaints. No abdominal pain, nausea, vomiting, diarrhea, or constipation. OBJECTIVE: VITAL SIGNS: Temperature 97.4, blood pressure 131/72, pulse 78. GENERAL: She is in no acute distress. Alert and oriented x3. LUNGS: Clear to auscultation bilaterally. HEART: Regular rate and rhythm without murmur. ABDOMEN: Soft, nontender, and nondistended. Bowel sounds are present. EXTREMITIES: No lower extremity edema. LABORATORY DATA: White blood cell count 5.4, hemoglobin 10.1, platelets 92. INR 1.4. Creatinine 2.69. Iron 217, TIBC 318, ferritin 589. Bilirubin 5.8, AST 459, ALT 366, alkaline phosphatase 103, albumin 3.1. IMPRESSION: Abnormal liver test. Her hepatitis B serology with the positive core IgM and positive surface antigen along with positive surface antibody indicates that she likely had a hepatitis B acute infection that her body is now clearing with acute inflammatory response. The pattern of these labs is not typical. We will await a DNA level and hepatitis B e-antibody and hepatitis B e-antigen. Her iron saturation is elevated, and we will send hemochromatosis gene as well. RECOMMENDATIONS: 1. Await hepatitis B DNA and hepatitis B e-antibody and hepatitis B e-antigen. 2. Check hematochromatosis gene PCR. 3. Await additional labs for other causes of liver disease. 4. Continue to monitor the trend of her renal function as well. Job ID: [id number]
[2020-06-13] MEDS: Sodium Chloride 0.9% 1,000 ML IV SCH ×2 (14:33→17:25)
[2020-06-13] MEDS: cefTRIAXone\\ROCEPHIN 1 GM in Sodium Chloride 0.9% 100 ML IVPB SCH (20:59)
[2020-06-13] MEDS: OLANZapine 5 MG TAB PO SCH (21:03)
[2020-06-13] MEDS: Nicotine 14 MG PATCH TD SCH (23:44)
[2020-06-14] MEDS: Levothyroxine Sodium 50 MCG TAB PO SCH (05:30)
[2020-06-14] MEDS: Sodium Chloride 0.9% 1,000 ML IV SCH ×2 (05:31→14:59)
[2020-06-14 06:21] LABS: ALT (SGPT) 272 U/L (8-55); AST (SGOT) 309 U/L (5-34); Albumin 2.8 g/dL (3.4-4.8); Alkaline Phosphatase 83 U/L (40-110); Anion Gap 12 mmol/L (10-20); BUN (Urea Nitrogen) 12 mg/dL (9.8-20.1); Calc. Creatinine Clearance 33 mL/min (70-130); Calcium 8.5 mg/dL (7.8-10.44); Carbon Dioxide 20 mmol/L (23-31); Chloride 111 mmol/L (98-107); Estimated GFR-MDRD 26; Globulin 4.4 g/dL (2.4-3.5); Glucose 89 mg/dL (80-115); Protein, Total 7.2 g/dL (6.0-8.3); Sodium 140 mmol/L (136-145)
[2020-06-14 06:26] LABS: Potassium 2.9 mmol/L (3.5-5.1)
--- NOTE | 2020-06-14 07:14 | PDOC.FM ---
- Subjective Subjective: no acute events overnight. Pt pleasant and denies pain this AM. transferred to medical floor. Stable. - Objective MAR Reviewed: Yes Vital Signs & Weight: Vital Signs (12 hours) Temp Pulse Resp BP Pulse Ox 06/14/20 04:00 98.2 F 60 18 129/68 99 06/13/20 23:49 97.8 F 63 18 120/62 94 L 06/13/20 20:00 98 F 74 18 130/70 99 Weight Admit Weight 87.09 kg Weight 87.09 kg Most Recent Monitor Data Heart Rate from ECG 92 NIBP 129/80 NIBP BP-Mean 96 Respiration from ECG 18 SpO2 93 I&O: 06/13/20 06/14/20 06/15/20 06:59 06:59 06:59 Intake Total 1140 1050 Output Total 300 800 Balance 840 250 Result Diagrams: 06/14/20 05:32 06/14/20 05:32 Phys Exam - Physical Examination Constitutional: NAD HEENT: moist MMs Respiratory: clear to auscultation bilateral Cardiovascular: RRR, no significant murmur Gastrointestinal: no distention Neurological: non-focal Dx/Plan (1) Acute renal failure Status: Acute (2) Chronic kidney disease Code(s): N18.9 - CHRONIC KIDNEY DISEASE, UNSPECIFIED Status: Acute (3) Diabetes Code(s): E11.9 - TYPE 2 DIABETES MELLITUS WITHOUT COMPLICATIONS Status: Acute (4) HTN (hypertension) Code(s): I10 - ESSENTIAL (PRIMARY) HYPERTENSION Status: Acute (5) Hepatitis Status: Acute (6) Hypothyroid Code(s): E03.9 - HYPOTHYROIDISM, UNSPECIFIED Status: Acute - Plan Plan: # Acute Liver Failure/Hepatitis Patient possibly w/ acute hep B infection she is now clearing w/ atypical labs. - PTT/PT/INR daily - consult GI, appreciate recs. Labs pending. 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 # Acute Kidney Failure on likely CKD - Nephro consulted, appreciate rec's - continue bicarb by mouth # Hypokalemia - replaced today # Elevated Procal - continue 3 day course of ceftriaxone. # Thrombocytopenia - monitor in setting of heparin VTE prophylaxis # DM II - A1c 5.4, hold/discontinue metformin. - SSI started # Hypothyroid # Dementia # Depression - continue home meds - continue 1-on-1 sitter and soft restraints prn # HLD # HTN - hold statin - hold home BP med, BPs here have been WNL or borderline low VTE: heparin Fluids: NS Diet: HH Code: full Dispo: stable on medical floor. GI and nephro on board. Will update family today. Addendum - Attending - Attending Attestation Date/Time: 06/14/20 9674 I personally evaluated the patient and discussed the management with Dr. Foley. I agree with the History, Examination, Assessment and Plan documented above with any addition or exceptions noted below. The patient was resting comfortably this morning. She denies abdominal pain. Appreciate GI recs. AFP is elevated. MRI liver ordered. Pt is hypokalemic, will replace potassium. Liver enzymes down-trending. Possibly home tomorrow.
[2020-06-14] MEDS ORDERED: Potassium Chloride 20 MEQ TAB PO SCH (07:15)
[2020-06-14] MEDS ORDERED: Potassium Chloride 20 MEQ/100 ML PREMIX BAG IVPB SCH (07:30)
[2020-06-14 08:15] LABS: #Eosinphils 0.3 thou/uL (0.0-0.7); #Lymphocytes 2.4 thou/uL (1.20-3.40); #Monocytes 0.4 thou/uL (0.11-0.59); #Neutrophils 1.9 thou/uL (1.40-6.50); %Basophils 0.6 % (0.0-1.0); %Eosinophils 6.7 % (0.0-10.0); %Lymphocytes 46.9 % (21.0-51.0); %Monocytes 7.9 % (0.0-10.0); %Neutrophils 37.8 % (42.0-75.0); Anisocytosis SLIGHT = 6-15 cells (100X) (0-5/hpf); MDiff Complete? YES; Mean Corpuscular HGB CONC 33.9 g/dL (32.0-36.0); Mean Corpuscular Hemoglobin 29.4 pg (27.0-31.0); Mean Corpuscular Volume 86.9 fL (78.0-98.0); Mean Platelet Volume 12.3 fL (7.4-10.4); Platelet Count 76 thou/uL (130-400); Platelet Morphology Comment Appears Decreased; RBC Distribution Width 18.1 % (11.5-14.5); Red Blood Cell (RBC) Count 3.38 mill/uL (4.20-5.40)
[2020-06-14] MEDS: Famotidine 20 MG TAB PO SCH (08:21)
[2020-06-14] MEDS: Heparin 5,000 UNITS/ML VIAL SC SCH ×3 (08:21→19:52)
--- NOTE | 2020-06-14 11:52 | PRG ---
DATE OF SERVICE: 06/14/2020 SUBJECTIVE: Ms. Sood has no abdominal pain, nausea, vomiting, or diarrhea. She has no acute complaints. OBJECTIVE: VITAL SIGNS: Temperature is 97.6, pulse 61, blood pressure 129/79. GENERAL: She is in no acute distress. She is oriented to her name and place, but not to year. She does not appear encephalopathic, however. She is not drowsy at all. LUNGS: Clear to auscultation bilaterally. HEART: Regular rate and rhythm without murmur. ABDOMEN: Soft, nontender, and nondistended. Bowel sounds are present. EXTREMITIES: No lower extremity edema. LABORATORY DATA: White blood cell count 5.0, hemoglobin 10.0, and platelets 76. INR 1.4. Creatinine 2.23, bilirubin 5.0, AST 309, ALT 272, alkaline phosphatase 83, albumin 2.8, globulin 4.4. Alpha fetoprotein 53.4. IMPRESSION: 1. Abnormal liver function tests. She appears to have had an acute hepatitis B infection and has developed immune responses. Her hepatitis B surface antigen is positive and also her core IgM is positive, but in addition that her surface antibody is positive indicating that she is developing immunity and acute inflammatory response related to the acute infection, which her immune system is likely to clear at this point. Await hepatitis B DNA level and hepatitis B e-antigen and e-antibody. We will also need to continue to await labs for other causes of liver disease such as autoimmune hepatitis given the elevated globulin. These labs are pending, but she is not necessarily have to stay in the hospital to wait for these. 2. Apparent cirrhosis given the low platelets, high INR. For hepatoma screening, her alpha fetoprotein is elevated a little over 50. I will, therefore, recommend an MRI of the liver to rule out a liver mass. RECOMMENDATIONS: 1. MRI of the liver. 2. If her liver tests continue to trend down tomorrow, then I would expect she should be able to follow up in the office to go over the remaining pending liver tests. Job ID: [id number]
--- NOTE | 2020-06-14 14:37 | PRG ---
DATE OF SERVICE: 06/14/2020 SUBJECTIVE: A 70-year-old female being seen for acute kidney injury. The patient denies nausea, vomiting, or chest pain. OBJECTIVE: GENERAL: On exam, the patient is awake and alert. VITAL SIGNS: Afebrile, pulse 61, breathing at 16, and blood pressure 129/79. HEENT: Head normocephalic and atraumatic. Eyes intact, no ulcers. Nose intact, no ulcers. Ears intact, no ulcers. NECK: Supple. No JVD. CHEST: Symmetrical and clear. CARDIOVASCULAR: Shows S1 and S2, no rub, no murmur. GASTROINTESTINAL: Abdomen is soft, bowel sounds positive. EXTREMITIES: Show no edema or ulcers. SKIN: Shows no rash or petechiae. MUSCULOSKELETAL: Shows no joint swelling or stiffness. GENITOURINARY: Shows no Valdez or CVA tenderness. NEUROLOGIC: Motor intact. Cranial nerves intact. LABORATORY DATA: Show hemoglobin 10. Potassium is 2.9. ASSESSMENT AND PLAN: 1. Chronic kidney disease, stage 4, stable. 2. Acute kidney injury, improved. 3. Hypertension, stable. 4. Anemia, stable. 5. Hypokalemia. Recommend aggressive potassium replacement. Recheck potassium again. No indication for dialysis. Job ID: [id number]
[2020-06-14] MEDS: cefTRIAXone\\ROCEPHIN 1 GM in Sodium Chloride 0.9% 100 ML IVPB SCH (19:51)
[2020-06-14] MEDS: OLANZapine 5 MG TAB PO SCH (19:58)
[2020-06-14] MEDS: Nicotine 14 MG PATCH TD SCH (22:51)
[2020-06-15 04:01] LABS: Anion Gap 12 mmol/L (10-20); BUN (Urea Nitrogen) 10 mg/dL (9.8-20.1); Calc. Creatinine Clearance 35 mL/min (70-130); Calcium 8.3 mg/dL (7.8-10.44); Carbon Dioxide 16 mmol/L (23-31); Chloride 116 mmol/L (98-107); Estimated GFR-MDRD 28; Glucose 76 mg/dL (80-115); Potassium 3.2 mmol/L (3.5-5.1); Sodium 141 mmol/L (136-145)
[2020-06-15 04:03] LABS: ALT (SGPT) 220 U/L (8-55); AST (SGOT) 241 U/L (5-34); Albumin 2.6 g/dL (3.4-4.8); Alkaline Phosphatase 75 U/L (40-110); Anion Gap 11 mmol/L (10-20); BUN (Urea Nitrogen) 11 mg/dL (9.8-20.1); Bilirubin, Total 4.2 mg/dL (0.2-1.2); Calc. Creatinine Clearance 34 mL/min (70-130); Calcium 8.2 mg/dL (7.8-10.44); Carbon Dioxide 16 mmol/L (23-31); Chloride 116 mmol/L (98-107); Estimated GFR-MDRD 28; Globulin 4.3 g/dL (2.4-3.5); Glucose 77 mg/dL (80-115); Potassium 3.2 mmol/L (3.5-5.1); Protein, Total 6.9 g/dL (6.0-8.3); Sodium 140 mmol/L (136-145)
[2020-06-15 04:47] LABS: Band 2 % (5-11); Eosinophils 8 % (0-10); Hemoglobin 9.9 g/dL (12.0-16.0); Lymphocytes 50 % (21-51); MDiff Complete? YES; Mean Corpuscular HGB CONC 33.6 g/dL (32.0-36.0); Mean Corpuscular Hemoglobin 29.3 pg (27.0-31.0); Mean Platelet Volume 11.3 fL (7.4-10.4); Monocytes 4 % (0-10); Neutrophil 36 % (42-75); Platelet Count 83 thou/uL (130-400); Platelet Morphology Comment Appears Decreased; RBC Distribution Width 18.1 % (11.5-14.5); White Blood Cell (WBC) Count 5.5 thou/uL (4.8-10.8)
[2020-06-15] MEDS: Levothyroxine Sodium 50 MCG TAB PO SCH (05:36)
--- NOTE | 2020-06-15 06:04 | PDOC.FM ---
- Subjective Subjective: Did well overnight. No acute events. This morning no concerns or complaints. A/ O x2. Eager for discharge to follow up with her PCP at [facility]. - Objective MAR Reviewed: Yes Vital Signs & Weight: Vital Signs (12 hours) Temp Pulse Resp BP Pulse Ox 06/14/20 20:00 100 06/14/20 19:48 97.6 F 62 18 130/72 100 Weight Admit Weight 87.09 kg Weight 87.09 kg Most Recent Monitor Data Heart Rate from ECG 92 NIBP 129/80 NIBP BP-Mean 96 Respiration from ECG 18 SpO2 93 I&O: 06/13/20 06/14/20 06/15/20 06:59 06:59 06:59 Intake Total 1140 1050 2050 Output Total 387 093 1689 Balance 840 250 350 Result Diagrams: 06/15/20 03:24 06/15/20 03:24 Phys Exam - Physical Examination Constitutional: NAD (resting comfortably) HEENT: moist MMs Neck: supple Respiratory: no wheezing, no rales, no rhonchi, clear to auscultation bilateral Cardiovascular: RRR, no significant murmur Gastrointestinal: soft, non-tender, no distention, positive bowel sounds Musculoskeletal: no edema Deviation from normal: A/O x2 to person and place Dx/Plan (1) Acute renal failure Status: Resolved Qualifiers: Acute renal failure type: unspecified Qualified Code(s): N17.9 - Acute kidney failure, unspecified (2) Chronic kidney disease Code(s): N18.9 - CHRONIC KIDNEY DISEASE, UNSPECIFIED Status: Acute Qualifiers: Chronic kidney disease stage: stage 4 (severe) Qualified Code(s): N18.4 - Chronic kidney disease, stage 4 (severe) (3) Diabetes Code(s): E11.9 - TYPE 2 DIABETES MELLITUS WITHOUT COMPLICATIONS Status: Chronic Qualifiers: Diabetes mellitus type: type 2 Diabetes mellitus senior care insulin use: without senior care use Diabetes mellitus complication detail: with nephropathy (4) HTN (hypertension) Code(s): I10 - ESSENTIAL (PRIMARY) HYPERTENSION Status: Chronic Qualifiers: Hypertension type: essential hypertension Qualified Code(s): I10 - Essential (primary) hypertension (5) Hepatitis Status: Acute - Plan Plan: 70yo AAF with h/o DMII, HLD, HTN, dementia, schizoaffective who presented with suspected acute Hep B and underlying cirrhosis of unknown etiology. # Acute Hepatitis secondary to Hep B in setting of apparent underlying cirrhosis - Labs c/w acute Hep B with transition to clearing of infection and immune response - Prolonged INR at 1.4 and low Plt at 83, suggestive of underlying cirrhosis with elevated AFP - GI consulted, apprec recs, MRI liver pending. 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 # Acute renal failure, resolved, on CKD 4 - Nephro consulted, apprec recs, Cr 3.47 -> 2.13, GFR 28, suspect baseline CKD 4 - Avoid nephrotoxic meds, monitor and replace lytes as indicated #UTI - Procal elevated, UCX with zheng-susceptible E.Coli - 3 day course of Rocephin, last dose today # Thrombocytopenia - likely 2/2 underlying liver cirrhosis, monitor in setting of heparin VTE prophylaxis # DM II - A1c 5.4, hold/discontinue metformin. - SSI started with ACUS Accuchecks - Hyperglycemic protocol # Hypothyroid - cont home meds # Dementia - Cont home meds. Sitter with soft restraints prn. Did well overnight without acute events or need for restraints. # HLD - Restart statin on discharge # HTN - On Lisinopril/HCTZ at home. Held 2/2 ARF. BP WNL since admission with borderline low. Will continue to hold upon discharge with follow up with PCP. VTE: heparin Fluids: NS @ 75cc/hr Diet: HH Code: full Dispo: Clinically improved. MRI liver pending this morning. Apprec GI and Nephro Recs. Hepatitis labs pending. Discharge possible today vs tomorrow pending workup and clinical course. Addendum - Attending - Attending Attestation Date/Time: 06/15/20 7659 I personally evaluated the patient and discussed the management with Dr. Watkins. I agree with the History, Examination, Assessment and Plan documented above with any addition or exceptions noted below. Patient overall feeling well. Liver and renal function stable. MRI pending. Hopeful discharge for further monitoring outpatient.
[2020-06-15] MEDS ORDERED: Potassium Chloride 20 MEQ TAB PO SCH (06:15)
[2020-06-15 07:47] VITALS: BP 122/74; TEMP 97.7
[2020-06-15] MEDS: Sodium Chloride 0.9% 1,000 ML IV SCH (09:44)
[2020-06-15] MEDS: Heparin 5,000 UNITS/ML VIAL SC SCH ×2 (09:46→16:14)
--- NOTE | 2020-06-15 13:59 | MRI ---
EXAM: MRI of the abdomen without contrast COMPARISON: None HISTORY: Cirrhosis and elevated AFP TECHNIQUE: Multiplanar multi sequence MR images were taken of the abdomen without IV contrast. FINDINGS: Liver: The liver has a smooth contour. No focal liver lesions or intrahepatic ductal dilatation. Norm al signal without dropout on out of phase images. A trace amount of fluid is seen adjacent to the liver. Gallbladder: Removed Common bile duct: Normal caliber without filling defects Adrenal glands: Unremarkable. Kidneys: 1.3 cm left renal cyst. Spleen: Unremarkable. Pancreas: Unremarkable. Retroperitoneum: No enlarged lymph nodes Bones: No marrow signal abnormality. Abdominal wall: There is a 3.7 cm fat-containing ventral hernia. IMPRESSION: 1. No significant hepatic abnormality 2. Trace ascites 3. Left renal cyst 4. Ventral hernia
--- NOTE | 2020-06-15 14:47 | PRG ---
DATE OF SERVICE: 06/15/2020 SUBJECTIVE: Patient was seen and examined at bedside and overnight events noted. Patient denies any shortness of breath or chest pain or palpitation. No history of nausea or vomiting or diarrhea or fever or chills or cramps. OBJECTIVE: GENERAL: This is a well-built female, in no apparent distress. VITAL SIGNS: Temperature 97.7. . Blood pressure 122/74. HEENT: Atraumatic, normocephalic. Oral mucosa is moist. NECK: Supple. CARDIOVASCULAR: S1, S2 heard. Rate and rhythm regular. RESPIRATORY: Clear to auscultation. GASTROINTESTINAL: Abdomen is soft. MUSCULOSKELETAL: No tenderness. No edema. DERMATOLOGIC: No skin rash. NEUROLOGIC: Alert and awake and oriented x3. No focal neurologic deficits. Moving all the extremities. PSYCHIATRIC: Mood and affect normal. LABORATORY DATA: Potassium 3.2, BUN is 11, creatinine is 2.1, GFR of 28. ASSESSMENT AND PLAN: 1. Acute kidney injury on chronic kidney disease, stage 4, stable. 2. Hypertension. 3. Anemia. 4. Hypokalemia. We will replace and monitor. 5. Acidosis. 6. Hepatorenal syndrome. 7. Monitor renal function. Avoid nephrotoxins. Job ID: [id number]
--- NOTE | 2020-06-15 16:57 | PRG ---
DATE OF SERVICE: 06/15/2020 SUBJECTIVE: Ms. Sood has no complaints. No abdominal pain. No nausea or vomiting or diarrhea or constipation. PHYSICAL EXAMINATION: VITAL SIGNS: Temperature 97.7, pulse 65, and blood pressure 122/74. GENERAL: She is in no acute distress. Awake and alert. LUNGS: Clear to auscultation bilaterally. HEART: Regular rate and rhythm without murmur. ABDOMEN: Soft, nontender, and nondistended. Bowel sounds are present. EXTREMITIES: No lower extremity edema. LABORATORY DATA: Hemoglobin 9.9, platelet count 83,000. Last INR was 1.4. Creatinine 2.13, bilirubin 4.2, AST 241, ALT 220, alkaline phosphatase 75. AFP was 53. MRI today showed no liver mass. Her iron saturation was elevated. IMPRESSION: 1. Abnormal liver function tests. She appears to have had an acute hepatitis B infection with immune response elicited. Her hepatitis B surface antigen is positive as is her hepatitis B core IgM, but also her hepatitis B surface antibody is positive indicating that she has converted to immunity and that the elevated liver tests now are likely due to the immune response. We will await hepatitis B DNA levels and hepatitis B e-antigen, hepatitis B e-antibody, and labs for other causes of liver disease have also been requested and are pending. 2. Apparent cirrhosis given the low platelets, high INR. Her alpha-fetoprotein was elevated over 50, so MRI of the liver was obtained today, which was negative for liver mass. RECOMMENDATIONS: 1. Follow up in GI clinic in 2 to 4 weeks results of the liver tests and recheck the trend of her LFTs. 2. We will also need to follow the trend of her renal function. Her creatinine has been chronically elevated and has improved this hospital stay. 3. Anticipated that she will be discharged home today. I will sign off for now. Please call if GI can be of assistance. Job ID: [id number]
[2020-06-15 18:36] LABS: HBV as IU/mL 31100 IU/mL (.); Log 10 HBV as IU/mL 4.493 (.)
[2020-06-16 13:19] LABS: ANA Symphony (Qualitative) Negative (Negative); ANA Symphony (Quantitative) 0.2 Ratio (< 0.7 Negative)
[2020-06-16 14:24] LABS: EliA Vaculitis New Method **** NEW METHOD ****; Mitochondrial Ab 1.5 U/mL (<4 Negative)
[2020-06-16 17:14] LABS: Hep B Surface AG-Rflx Sendout Confirm. indicated (Negative)
--- NOTE | 2020-06-18 03:05 | DIS ---
DATE OF ADMISSION: 06/11/2020 DATE OF DISCHARGE: 06/15/2020 RESIDENT: Gil Watkins MD ADMITTING ATTENDING: Jaren Agosto MD DISCHARGE ATTENDING: Orlando Smith MD CONSULTS: 1. Gastroenterology, Dr. Meng. 2. Nephrology, Dr. Guzman. PROCEDURES: 1. Abdomen ultrasound on 06/11/2020, demonstrating post cholecystectomy. Questionable hepatic cirrhosis. Findings suggestive of medical renal disease. 2. Chest x-ray on 06/12/2020, demonstrating no acute cardiopulmonary findings. 3. Abdomen MRI on 06/15/2020, demonstrating no significant hepatic abnormality. Trace ascites. Left renal cyst. Ventral hernia. PRIMARY DIAGNOSES: 1. Acute hepatitis secondary to hepatitis B infection with concern for underlying cirrhosis. 2. Acute renal failure, resolved. 3. Urinary tract infection. 4. 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 Chronic kidney disease, 4. 2. Thrombocytopenia. 3. Type 2 diabetes. 4. Hypothyroidism. 5. Dementia. 6. Hyperlipidemia. 7. Hypertension. DISCHARGE MEDICATIONS: 1. Olanzapine 10 mg p.o. at bedtime. 2. Crestor 20 mg p.o. daily. 3. Memantine 5 mg p.o. b.i.d. 4. Levothyroxine 50 mcg p.o. daily. DISCONTINUED MEDICATIONS: Losartan-hydrochlorothiazide 50-12.5 one tablet p.o. daily. HISTORY OF PRESENT ILLNESS AND HOSPITAL COURSE: The patient is a 70-year-old female with history of dementia, depression, hypertension, hyperlipidemia, and diabetes, who was brought to the Emergency Department secondary to abnormal lab work. She was told that her kidney and liver function did not "look good." She has had been having nausea and vomiting, has not ate or drink very much in the past few days, had some hematuria. She denies any fevers, chills, urinary retention, urinary frequency, abdominal pain, blood in the stool, diarrhea, or constipation. She was initially found to have acute hepatitis and an ELVIA with hyperkalemia and thus was admitted to [facility] for further evaluation and management. Nephrology was consulted for her acute kidney injury. She started on a bicarb drip and IV fluid. Her creatinine gradually improved over her hospitalization and returned to her baseline CKD 4. No further recommendations were provided by Nephrology at this time. The patient had initially with hyperkalemia, has improved with IV fluids. The patient also had the acute liver failure and a hepatitis panel was ordered, which returned positive for acute hepatitis B. Her INR was slightly elevated at 1.4, and platelets were low. An abdominal ultrasound showed concern for a possible underlying cirrhosis and thus, GI was consulted. GI recommended an MRI of the liver, which returned for no suspicious liver pathology. They also added an extensive hepatitis workup that after her discharge returned positive for [id number] DNA suggestive of lupus as well as evidence of acute hepatitis B infection. GI recommended that the patient could follow up as an outpatient for continued workup of her hepatitis and underlying liver pathology. The patient was also found to have a UTI that was E. coli, zheng susceptible and does completed a three-day course of Rocephin. The patient's chronic medical conditions were continued with her home medications and the patient did very well. Her blood pressure medications were held due to her acute renal failure and hyperkalemia. Her blood pressure remained normotensive throughout her the entire hospitalization, her blood pressure medications were discontinued at the time of discharge. At the time of discharge, the patient was doing very well. Her baseline mentation was very eager to be discharged home to follow up with her primary care physician at [facility]. GI recommended continued outpatient workup, but cleared her for discharge home. Nephrology signed off and said to follow up with her primary care physician. The discharge plan was discussed with patient at bedside, who voiced agreement and understanding of discharge plan and appropriate followup. The patient's vital signs were stable and she was eager to be discharged home. DISPOSITION: Stable. DISCHARGE INSTRUCTIONS: 1. Location: Home. 2. Diet: Heart healthy consistent carb. 3. Activity: As tolerated. 4. Follow up: The patient to follow up with primary care physician within one week of discharge. The patient is to follow up with Gastroenterology as directed. Job ID: [id number] [facility]
== END 2020-06-15 19:50 | disposition home or self-care (01) | DRG 441 ==
LOC: ERS 13:06 → IMCU/EMU 14:48 → T4-A 06-13 15:28
PROVIDERS: ADMIT Family Medicine; ATTEND Family Medicine
DX: B16.9 Acute hepatitis B without delta-agent and without hepatic coma (principal); K76.7 Hepatorenal syndrome; N17.9 Acute kidney failure, unspecified; E87.2 Acidosis; N39.0 Urinary tract infection, site not specified; N18.4 Chronic kidney disease, stage 4 (severe); E87.6 Hypokalemia; E78.00 Pure hypercholesterolemia, unspecified; F17.210 Nicotine dependence, cigarettes, uncomplicated; F32.9 Major depressive disorder, single episode, unspecified; E03.9 Hypothyroidism, unspecified; F03.90 Unspecified dementia, unspecified severity, without behavioral disturbance, psychotic disturbance, mood disturbance, and anxiety; D69.6 Thrombocytopenia, unspecified; I12.9 Hypertensive chronic kidney disease with stage 1 through stage 4 chronic kidney disease, or unspecified chronic kidney disease; B96.20 Unspecified Escherichia coli [E. coli] as the cause of diseases classified elsewhere; E11.22 Type 2 diabetes mellitus with diabetic chronic kidney disease; I95.9 Hypotension, unspecified; K74.60 Unspecified cirrhosis of liver; E11.21 Type 2 diabetes mellitus with diabetic nephropathy; E87.5 Hyperkalemia; Z90.710 Acquired absence of both cervix and uterus; Z79.899 Other long term (current) drug therapy; Z79.84 Long term (current) use of oral hypoglycemic drugs; Z90.721 Acquired absence of ovaries, unilateral
CPT/HCPCS: 36415; 36416; 71045; 74181; 80053; 80074; 80306; 80307; 81001; 82103; 82104; 82105; 82570; 82728; 82805; 83516; 83540; 83550; 83605; 83690; 83735; 84100; 84145; 84300; 84540; 85025; 85610; 85730; 86038; 86225; 86704; 86706; 86707; 86708; 86780; 86803; 87077; 87086; 87186; 87340; 87350; 87389; 87517; 87635; 93975; 96361; 96374; J0696; J1644; J3370; J3480; J3490; J7050; J7070; U0003

== ENCOUNTER 2020-07-16 15:12 | Emergency (ER) | payer MEDICARE, MEDICAID ==
[2020-07-16 17:59] LABS: ALT (SGPT) 16 U/L (8-55); AST (SGOT) 35 U/L (5-34); Albumin 3.4 g/dL (3.4-4.8); Alkaline Phosphatase 77 U/L (40-110); Anion Gap 15 mmol/L (10-20); BUN (Urea Nitrogen) 7 mg/dL (9.8-20.1); Bilirubin, Total 1.8 mg/dL (0.2-1.2); Calc. Creatinine Clearance 0 mL/min (70-130); Calcium 9.1 mg/dL (7.8-10.44); Carbon Dioxide 21 mmol/L (23-31); Chloride 107 mmol/L (98-107); Estimated GFR-MDRD 62; Globulin 4.5 g/dL (2.4-3.5); Glucose 122 mg/dL (80-115); Potassium 3.6 mmol/L (3.5-5.1); Protein, Total 7.9 g/dL (6.0-8.3); Sodium 139 mmol/L (136-145)
[2020-07-16 19:02] LABS: Bacteria/HPF None Seen HPF (None Seen); Bilirubin Negative (Negative); Blood, Urine Negative (Negative); Clarity Clear (Clear); Glucose, Urine (Dipstick) Normal (Negative); Ketone, Urine Negative (Negative); Leukocyte 25 Leu/uL (Negative); Nitrite Negative (Negative); Protein, Urine (Dipstick) 10 mg/dL (Neg-Trace); RBC/HPF 0-3 HPF (0-3); Specific Gravity, Urine 1.015 (1.002-1.036); Squamous Epithelial 0-3 HPF (0-3); WBC/HPF 0-3 HPF (0-3); pH, Urine 6.5 (5.0-9.0)
== END 2020-07-16 20:41 | disposition home or self-care (01) ==
LOC: ERS 15:12
DX: R53.1 Weakness (principal); E78.5 Hyperlipidemia, unspecified; E11.9 Type 2 diabetes mellitus without complications; E78.00 Pure hypercholesterolemia, unspecified; F32.9 Major depressive disorder, single episode, unspecified; F17.210 Nicotine dependence, cigarettes, uncomplicated; Z79.84 Long term (current) use of oral hypoglycemic drugs; Z79.899 Other long term (current) drug therapy
CPT/HCPCS: 80053; 81003; 81015; 83605; 84484; 93005

== ENCOUNTER 2020-07-19 14:45 | Emergency (ER) | payer MEDICARE, MEDICAID ==
--- NOTE | 2020-07-19 15:32 | RAD ---
PORTABLE CHEST: History: Dyspnea FINDINGS: Heart size and mediastinum are within normal limits. The lungs are clear of any infiltrative process. IMPRESSION: 1. No active intrathoracic disease. 2. Atherosclerosis. POS: OFF
[2020-07-19 16:20] LABS: ALT (SGPT) 13 U/L (8-55); AST (SGOT) 34 U/L (5-34); Albumin 3.3 g/dL (3.4-4.8); Alkaline Phosphatase 88 U/L (40-110); Anion Gap 13 mmol/L (10-20); BUN (Urea Nitrogen) 8 mg/dL (9.8-20.1); Bilirubin, Total 1.9 mg/dL (0.2-1.2); Calc. Creatinine Clearance 0 mL/min (70-130); Calcium 8.8 mg/dL (7.8-10.44); Carbon Dioxide 21 mmol/L (23-31); Chloride 110 mmol/L (98-107); Estimated GFR-MDRD 60; Globulin 4.3 g/dL (2.4-3.5); Glucose 96 mg/dL (80-115); Potassium 3.4 mmol/L (3.5-5.1); Protein, Total 7.6 g/dL (6.0-8.3); Sodium 141 mmol/L (136-145)
[2020-07-19] MEDS ORDERED: Potassium Chloride 20 MEQ TAB ONE (16:38)
[2020-07-19 17:11] LABS: Hemoglobin 11.9 g/dL (12.0-16.0); Mean Corpuscular HGB CONC 34.6 g/dL (32.0-36.0); Mean Corpuscular Hemoglobin 32.3 pg (27.0-31.0); Mean Corpuscular Volume 93.3 fL (78.0-98.0); RBC Distribution Width 16.4 % (11.5-14.5)
[2020-07-19 17:26] LABS: Anisocytosis SLIGHT = 6-15 cells (100X) (0-5/hpf); Band 1 % (5-11); Eosinophils 9 % (0-10); Lymphocytes 51 % (21-51); MDiff Complete? YES; Monocytes 6 % (0-10); Neutrophil 32 % (42-75); Platelet Clumps SLIGHT; Platelet Morphology Comment PLT clumps seen-LOW; Polychromasia SLIGHT = 2-3 cells (100X) (0-2/hpf); Reactive Lymphocytes 1 % (0-10)
== END 2020-07-19 17:33 | disposition home or self-care (01) ==
LOC: ERS 14:45
DX: R00.2 Palpitations (principal); E87.6 Hypokalemia; E11.9 Type 2 diabetes mellitus without complications; E78.5 Hyperlipidemia, unspecified; E78.00 Pure hypercholesterolemia, unspecified; F32.9 Major depressive disorder, single episode, unspecified; F17.210 Nicotine dependence, cigarettes, uncomplicated; Z79.84 Long term (current) use of oral hypoglycemic drugs; Z79.899 Other long term (current) drug therapy
CPT/HCPCS: 36415; 71045; 80053; 84484; 85025; 93005

== ENCOUNTER 2020-07-21 15:16 | Emergency (ER) | payer MEDICARE, MEDICAID | END 2020-07-21 16:40 | disposition home or self-care (01) | LOC: ERS 15:16 | DX: G47.00 Insomnia, unspecified (principal); E11.9 Type 2 diabetes mellitus without complications; E78.5 Hyperlipidemia, unspecified; I10 Essential (primary) hypertension; F32.9 Major depressive disorder, single episode, unspecified; F17.210 Nicotine dependence, cigarettes, uncomplicated; Z79.899 Other long term (current) drug therapy | CPT/HCPCS: 99281 ==

== ENCOUNTER 2021-07-23 17:54 | Emergency (ER) | payer MEDICAID, MEDICARE ==
[2021-07-23 20:55] LABS: ALT (SGPT) 7 U/L (8-55); AST (SGOT) 18 U/L (5-34); Alkaline Phosphatase 75 U/L (40-110); Anion Gap 13 mmol/L (10-20); BUN (Urea Nitrogen) 9 mg/dL (9.8-20.1); Bilirubin, Total 0.6 mg/dL (0.2-1.2); Calc. Creatinine Clearance 0 mL/min (70-130); Carbon Dioxide 24 mmol/L (23-31); Chloride 106 mmol/L (98-107); Globulin 4.4 g/dL (2.4-3.5); Glucose 97 mg/dL (80-115); Potassium 3.9 mmol/L (3.5-5.1); Protein, Total 8.4 g/dL (5.8-8.1); Sodium 139 mmol/L (136-145)
[2021-07-23 21:07] LABS: #Eosinphils 0.1 thou/uL (0.0-0.7); #Lymphocytes 3.4 thou/uL (1.20-3.40); #Monocytes 0.6 thou/uL (0.11-0.59); #Neutrophils 3.8 thou/uL (1.40-6.50); %Basophils 0.3 % (0.0-1.0); %Lymphocytes 42.8 % (21.0-51.0); %Monocytes 7.5 % (0.0-10.0); %Neutrophils 48.5 % (42.0-75.0); Hemoglobin 13.3 g/dL (12.0-16.0); Mean Corpuscular HGB CONC 34.3 g/dL (32.0-36.0); Mean Corpuscular Hemoglobin 28.1 pg (27.0-31.0); Mean Platelet Volume 9.7 fL (7.4-10.4); Platelet Count 114 thou/uL (130-400); Platelet Morphology Comment Appears Decreased; RBC Distribution Width 14.6 % (11.5-14.5); RBC Morphology Normal; Red Blood Cell (RBC) Count 4.72 mill/uL (4.20-5.40); White Blood Cell (WBC) Count 7.9 thou/uL (4.8-10.8)
== END 2021-07-23 22:40 | disposition home or self-care (01) ==
LOC: ERS 17:54
DX: G30.9 Alzheimer's disease, unspecified (principal); F02.80 Dementia in other diseases classified elsewhere, unspecified severity, without behavioral disturbance, psychotic disturbance, mood disturbance, and anxiety; E11.9 Type 2 diabetes mellitus without complications; E78.5 Hyperlipidemia, unspecified; E78.00 Pure hypercholesterolemia, unspecified; I10 Essential (primary) hypertension; F17.210 Nicotine dependence, cigarettes, uncomplicated; Z79.84 Long term (current) use of oral hypoglycemic drugs; Z79.899 Other long term (current) drug therapy
CPT/HCPCS: 36415; 80053; 85025; 93005

== ENCOUNTER 2023-02-23 19:37 | Emergency (ER) | payer OTHER, MEDICAID ==
[2023-02-23 20:47] LABS: #Monocytes 0.5 thou/uL (0.11-0.59); #Neutrophils 4.1 thou/uL (1.40-6.50); %Basophils 0.1 % (0.0-1.0); %Eosinophils 0.1 % (0.0-10.0); %Lymphocytes 32.9 % (21.0-51.0); %Monocytes 6.8 % (0.0-10.0); Hemoglobin 12.5 g/dL (12.0-16.0); Mean Corpuscular HGB CONC 34.2 g/dL (32.0-36.0); Mean Corpuscular Hemoglobin 27.2 pg (27.0-31.0); Mean Corpuscular Volume 79.6 fl (78.0-98.0); Mean Platelet Volume 11.4 fL (7.4-10.4); Platelet Count 120 10x3/uL (130-400); RBC Distribution Width 15.8 % (11.5-14.5); White Blood Cell (WBC) Count 6.8 10x3/uL (4.8-10.8)
[2023-02-23 21:10] LABS: ALT (SGPT) 92 U/L (8-55); AST (SGOT) 121 U/L (5-34); Albumin 4.3 g/dL (3.4-4.8); Alkaline Phosphatase 70 U/L (40-110); Anion Gap 21 mmol/L (10-20); BUN (Urea Nitrogen) 16 mg/dL (9.8-20.1); Bilirubin, Total 1.2 mg/dL (0.2-1.2); Calc. Creatinine Clearance 0 mL/min (70-130); Calcium 10.4 mg/dL (7.8-10.44); Carbon Dioxide 26 mmol/L (23-31); Chloride 98 mmol/L (98-107); Estimated GFR 24; Globulin 4.6 g/dL (2.4-3.5); Glucose 97 mg/dL (83-110); Magnesium 1.9 mg/dL (1.6-2.6); Potassium 2.9 mmol/L (3.5-5.1); Protein, Total 8.9 g/dL (5.8-8.1); Sodium 142 mmol/L (136-145)
[2023-02-23] MEDS ORDERED: Potassium Chloride 20 MEQ TAB ONE (21:29)
== END 2023-02-23 22:27 | disposition home or self-care (01) ==
LOC: ERS 19:37
DX: E87.6 Hypokalemia (principal); I12.9 Hypertensive chronic kidney disease with stage 1 through stage 4 chronic kidney disease, or unspecified chronic kidney disease; E11.22 Type 2 diabetes mellitus with diabetic chronic kidney disease; N18.9 Chronic kidney disease, unspecified; R74.01 Elevation of levels of liver transaminase levels; F17.210 Nicotine dependence, cigarettes, uncomplicated; E78.00 Pure hypercholesterolemia, unspecified; F03.90 Unspecified dementia, unspecified severity, without behavioral disturbance, psychotic disturbance, mood disturbance, and anxiety; Z79.84 Long term (current) use of oral hypoglycemic drugs; Z79.899 Other long term (current) drug therapy
CPT/HCPCS: 36415; 80053; 83735; 85025; 93005; 94760; 96360